=== PATIENT | male | born 1960 | race Caucasian/White ===

== ENCOUNTER → 2018-07-17 | Outpatient (CLI) | payer OTHER ==
[~2018-07-17] VITALS: Ht 180.3 cm; Wt 91.2 kg
[~2018-07-17] MED LIST: ASPIR-TRIN325 MG PO; BYSTOLIC20 MG PO; LIPITOR 20 MG T20 M1 PO; ZOLOFT50 MG PO
--- NOTE | ~2018-07-17 | EKG ---
[place] [address] [facility] [place] [address] ELECTROCARDIOGRAM REPORT Name: JUANITA OWEN [facility] [id number] Admission: 07/17/18 Attend Phys: Blaine Melendez MD, Discharge: Date of : 58 Report #: [id number] THIS REPORT FOR: //name// [facility] Test Date: 2018-07-17 Test Time: 07:08:30 Pat Name: JUANITA OWEN Department: Room: Gender: Children Counselor: Chicho VANEGAS : 1960 Requested By: Blaine Melendez Order Number: [id number] MD: Roldan Parker Measurements Intervals [place] Rate: 47 P: 10 FL: 174 QRS: 10 QRSD: 95 T: 33 QT: 443 QTc: 392 Interpretive Statements Sinus bradycardia Otherwise normal tracing No previous ECG available for comparison Electronically Signed On 07-17-2018 9:14:36 CDT by Roldan Parker [email or web address] <ELECTRONICALLY SIGNED> By: Roldan Parker MD, [facility] 07/17/18 0914 0708 7 Roldan Parker MD, [facility] /EPI
--- NOTE | ~2018-07-17 | CATHLAB ---
[facility] [address] [place] [address] INVASIVE PROCEDURE REPORT Name: JUANITA OWEN Octavio Room #: REG [place]#: [id number] Admission: 07/17/18 Attend Phys: Blaine Melendez, Discharge: Date of : 58 Date of Service: 07/17/18 1834 Report #: [id number] THIS REPORT FOR: //name// APPROVED REPORT Study performed: 07/17/2018 08:05:56 Patient Details Patient Status: Out-Patient Room #: The patient is a 57 year-old male Event Personnel Blaine Melendez Refuse Collector, Cheli Mcclendon RTR, MARGIN TRIMMER Monitor, Devante Ferrell RN, Tc Kendall RN RN, Linda Razaub, Juana Berry RTR Scrub Procedures Performed Art Access - R femoral artery* Left Heart Cath w/or w/o Coronaries [id number] [facility] [address] Initial Mod Sed Same Phys/QHP Gr5y 520877 Hemostasis w/ Mynx Indication Positive stress test Procedure Narrative The Right Groin^ was infiltrated with 1% Lidocaine subcutaneous anesthesia. A PINNACLE 6FR Sheath #[id number] sheath was inserted into the RFA^. Coronary angiography was performed using coronary diagnostic catheters. The right coronary system was accessed and visualized with a JR4 catheter. The left coronary system was accessed and visualized with a JL4 catheter. The left ventricle was accessed and visualized with a Pigtail catheter. Left ventriculogram was performed in 30 degree projection. An aortogram of the abdominal aorta was performed. Pre-demployment femoral angiogram was performed . Closure device was deployed with a 6 Fr MYNXGRIP 6/7F #[id number]. The patient tolerated the procedure well and there were no complications associated with the procedure. There was no hematoma. Intraoperative Conscious Sedation Sedation start time: 08:30 Case end Time: 08:52 Fentanyl 75 mcg Versed 1.5 mg Fluoro Time: 1.52 minutes Dose: DAP 2966.40 cGycm2 342 mGy [facility] [address] [place] [address] INVASIVE PROCEDURE REPORT Name: JUANITA OWEN Octavio [facility] [id number] Admission: 07/17/18 Attend Phys: Blaine Melendez, Discharge: Date of : 58 Date of Service: 07/17/18 1834 Report #: [id number] Contrast Type and Amount: Omnipaque 110 ml Hemodynamics The aortic pressure is 107/61 mmHg with a mean of 82 mmHg. The left ventricular pressure is 118/11 mmHg with a mean of mmHg. The left ventricular end diastolic pressure is 23 mmHg. Conclusion #1 normal left ventricular size with LV function lower limits of normal EF 50-55% #2 abdominal aortogram revealing normal caliber aorta renal arteries appear to be widely patent iliac system mildly diseased no aneurysm #3 mild three-vessel coronary disease and a right dominant system no occlusive disease is noted Recommendations and plan continue aggressive risk factor modification. No indication for coronary intervention. Stress echo yielding a false positive. LV function lower limits of normal. No lifting for 48 hours no line tub Jacuzzi or Pete for a week. Follow-up 1 year <ELECTRONICALLY SIGNED> By: Blaine Melendez MD, [facility] 07/17/181833 33 33 Blaine Melendez MD, FACC /INF
[2018-07-17 07:20] LABS: HEMATOCRIT 37.7 % (42.0-52.0); HEMOGLOBIN 12.8 gm/dL (14.0-18.0); MCH 31.8 pg (26.0-34.0); MCV 93.5 fL (80.0-100.0); RBC 4.03 mil/uL (4.50-6.00); WBC 7.1 thou/uL (4.0-11.0)
[2018-07-17 07:28] VITALS: BP 90/55
[2018-07-17 07:30] LABS: CALCIUM 8.9 mg/dL (8.5-10.1); CREATININE 0.9 mg/dL (0.7-1.3); POTASSIUM 4.1 mmol/L (3.5-5.1)
== END | disposition home or self-care (01) ==
LOC: CATH 06:49
PROVIDERS: Internal Medicine Cardiovascular Disease
DX: I25.10 Atherosclerotic heart disease of native coronary artery without angina pectoris (principal); E78.5 Hyperlipidemia, unspecified; Z98.890 Other specified postprocedural states; Z82.49 Family history of ischemic heart disease and other diseases of the circulatory system; Z79.899 Other long term (current) drug therapy; Z79.82 Long term (current) use of aspirin; Z90.89 Acquired absence of other organs

== ENCOUNTER → 2020-09-30 | Outpatient (CLI) | payer OTHER ==
[~2020-09-30] MED LIST changes: +LEXAPRO20 MG PO; +LUTEIN40 MG PO; +REXULTI0.25 MG PO; +SUPER THERAVIT1 EACH PO; +TRAZODONE HCL100 MG PO; +VITAMIN B-121000 MC2 PO
== END ==
LOC: SJCVCIMAG 12:25
PROVIDERS: ATTEND Internal Medicine Cardiovascular Disease
DX: I49.1 Atrial premature depolarization (principal); I25.10 Atherosclerotic heart disease of native coronary artery without angina pectoris; I10 Essential (primary) hypertension

== ENCOUNTER → 2020-10-02 | Outpatient (CLI) | payer OTHER ==
[~2020-10-02] VITALS: Ht 180.3 cm; Wt 97.5 kg
[2020-10-02 07:12] VITALS: BP 107/64
[2020-10-02 07:35] LABS: HEMATOCRIT 39.1 % (42.0-52.0); HEMOGLOBIN 12.9 gm/dL (14.0-18.0); MCH 31.1 pg (26.0-34.0); MCV 94.2 fL (80.0-100.0); RBC 4.15 mil/uL (4.50-6.00); RDW 13.6 % (10.5-14.5)
[2020-10-02 07:52] LABS: CALCIUM 8.8 mg/dL (8.5-10.1); POTASSIUM 3.9 mmol/L (3.5-5.1)
--- NOTE | 2020-10-03 17:11 | CATHLAB ---
[facility] [place] [address] INVASIVE PROCEDURE REPORT Name: JUANITA OWEN Room #: REG [place].#: [id number] Admission: 10/02/20 Attend Phys: Blaine Melendez MD, Discharge: Date of : 58 Report #: [id number] THIS REPORT FOR: cc: Rosangela Regalado MD, Kerry B. MD Mancuso, Gerald M. MD [facility] ~ APPROVED REPORT Study performed: 10/02/2020 08:36:15 Patient Details Patient Status: Out-Patient Room #: The patient is a 59 year-old male Event Personnel Blaine Melendez Electroformer, Linda May, Deepika Everett McConnell, Jordan RTZiyad Morales Dexter RN wheat shipper Performed Art Access - R femoral artery* 68922 Initial Mod Sed Same Phys/QHP Gr5y 378239 Left Heart Cath w/or w/o Coronaries [id number] [facility] Hemostasis w/ Mynx , Aortogram Indication Positive stress test, Chest pain Procedure Narrative The patient was brought electively to the Cardiac Catheterization Laboratory and was prepped and draped in a sterile manner. The Right Groin^ was infiltrated with 1% Lidocaine subcutaneous anesthesia. A PINNACLE 6FR Sheath #[id number] sheath was inserted into the RFA^. Coronary angiography was performed using coronary diagnostic catheters. The right coronary system was accessed and visualized with a 3DRC catheter. The left coronary system was accessed and visualized with a JL 4 catheter. The left ventricle was accessed and visualized with a Pigtail catheter. Left ventriculogram was performed in MANCINI projection. An aortogram of the abdominal aorta was performed. Pre-demployment femoral angiogram was performed . Closure device was deployed with a 6 Fr Mynx. The patient tolerated the procedure well and there were no complications associated with the procedure. There was no hematoma. Intraoperative Conscious Sedation [facility] [address] [place] [address] INVASIVE PROCEDURE REPORT Name: JUANITA OWEN Room #: [facility] [place]#: [id number] Admission: 10/02/20 Attend Phys: Blaine PerrinReece Nora, Discharge: Date of : 58 Report #: [id number] Sedation start time: 09:01 Case end Time: 09:23 Fentanyl 50 mcg Versed 1 mg Fluoro Time: 1.50 minutes Dose: DAP 5185.00 cGycm2 586 mGy Contrast Type and Amount: Omnipaque 110 ml Hemodynamics The aortic pressure is 124/69 mmHg with a mean of 78 mmHg. The left ventricular pressure is 120/12 mmHg with a mean of mmHg. The left ventricular end diastolic pressure is 31 mmHg. Conclusion #1. Left main free of disease giving rise to LAD and circumflex. #2 LAD with mild irregularities extends around the apex. No occlusive disease. #3 circumflex OM nondominant with a eccentric 30% proximal mid vessel moderate in size. #4 dominant right coronary with a mid distal 30 to 40% irregularity filling a smaller dominant PDA. #5 normal left jugular size and systolic function EF 60% #6 normal abdominal aortogram revealing no evidence of aneurysm single bilateral renal arteries mild disease. Recommendations and plan: Continue aggressive risk factor modification no indication for coronary intervention. <ELECTRONICALLY SIGNED> By: Blaine Melendez MD, FACC 10/03/201710 10 10 Blaine Melendez MD, FACC /INF
== END ==
LOC: CATH 06:36
PROVIDERS: ATTEND Internal Medicine Cardiovascular Disease
DX: R07.9 Chest pain, unspecified (principal); I25.10 Atherosclerotic heart disease of native coronary artery without angina pectoris; R94.39 Abnormal result of other cardiovascular function study; E78.5 Hyperlipidemia, unspecified; Z90.49 Acquired absence of other specified parts of digestive tract; Z98.890 Other specified postprocedural states; Z79.899 Other long term (current) drug therapy